=== PATIENT | male | born 2000 | race Caucasian/White ===

== ENCOUNTER 2019-12-05 11:05 | Emergency (ER) | payer BC ==
--- NOTE | 2019-12-05 12:30 | EDM.PDOC ---
ED HPI GENERAL MEDICAL PROBLEM - General Chief Complaint: Chest Pain Stated Complaint: HIGH BP Time Seen by Provider: 12/05/19 12:18 - History of Present Illness INITIAL COMMENTS - FREE TEXT/NARRATIVE: 19-year-old male presents the emergency room with a sensation of fluttering in his chest. Patient was sent here from the clinic and told his blood pressure was too high. The patient gives a history of at least once a day having an episode where he feels as fluttering in his chest and at times he develops a squeezing sensation in his chest with this. This is been going on for at least the last couple of weeks but seems to get much more frequent over the last 4 days or so. The patient denies any history of heart problems he recently quit smoking denies illicit drug use. Patient has a family history of a grandmother who had heart problems in her 60s. Left Chest Pain Score (Numeric/FACES): 1 - Related Data Allergies Allergy/AdvReac Type Severity Reaction Status Date / Time shellfish derived Allergy Airway Verified 12/12/15 19:24 Tightness Home Meds: Home Meds . [No Known Home Meds] 12/12/15 [History] Past Medical History HEENT History: Reports: None Cardiovascular History: Reports: None Respiratory History: Reports: Asthma Gastrointestinal History: Reports: None Genitourinary History: Reports: None Musculoskeletal History: Reports: Other (See Below) Other Musculoskeletal History: Knee Pain Neurological History: Reports: None Psychiatric History: Reports: Depression Endocrine/Metabolic History: Reports: None Hematologic History: Reports: None Immunologic History: Reports: None Oncologic (Cancer) History: Reports: None Dermatologic History: Reports: None - Infectious Disease History Infectious Disease History: Reports: None Social & Family History - Tobacco Use Smoking Status *Q: Former Smoker Used Tobacco, but Quit: Yes Month/Year Tobacco Last Used: 09/2019 - Caffeine Use Caffeine Use: Reports: Coffee, Energy Drinks, Soda - Recreational Drug Use Recreational Drug Use: No - Living Situation & Occupation Living situation: Reports: Single, with Family Occupation: Student ED ROS GENERAL - Review of Systems Review Of Systems: See Below Constitutional: Reports: No Symptoms HEENT: Reports: No Symptoms Respiratory: Reports: No Symptoms Cardiovascular: Reports: Palpitations. Denies: Chest Pain GI/Abdominal: Reports: No Symptoms Neurological: Reports: No Symptoms ED EXAM, GENERAL - Physical Exam Exam: See Below Exam Limited By: No Limitations General Appearance: Alert, No Apparent Distress Head: Atraumatic, Normocephalic Neck: Normal Inspection, Supple, Non-Tender, Full Range of Motion. No: Lymphadenopathy (L), Lymphadenopathy (R), Thyromegaly Respiratory/Chest: No Respiratory Distress, Lungs Clear, Normal Breath Sounds Cardiovascular: Regular Rate, Rhythm, No Edema, No Murmur GI/Abdominal: Normal Bowel Sounds, Soft, Non-Tender Extremities: Normal Inspection, No Pedal Edema Neurological: Alert, Oriented, Normal Cognition Course - Vital Signs Last Recorded V/S: Last Vital Signs Temp 36.2 C 12/05/19 11:11 Pulse 93 12/05/19 11:11 Resp 16 12/05/19 11:11 BP 144/90 H 12/05/19 11:11 Pulse Ox 100 12/05/19 11:11 - Orders/Labs/Meds Orders: Active Orders 24 hr Category Date Time Status EKG 12 Lead [EKG Documentation Completion] [RC] ROUTINE Care 12/05/19 11:41 Active Holter Monitor 48 Hours [RC] .PRN Care 12/05/19 15:09 Active Labs: Laboratory Tests 12/05/19 12/05/19 12/05/19 Range/Units 13:10 13:10 13:10 WBC 6.56 (4.23-9.07) K/mm3 RBC 4.98 (4.63-6.08) M/mm3 Hgb 14.9 (13.7-17.5) gm/dl Hct 41.9 (40.1-51.0) % MCV 84.1 (79.0-92.2) fl MCH 29.9 (25.7-32.2) pg MCHC 35.6 H (32.2-35.5) g/dl RDW Std Deviation 39.7 (35.1-43.9) fL Plt Count 228 (163-337) K/mm3 MPV 9.6 (9.4-12.3) fl Neut % (Auto) 63.2 (34.0-67.9) % Lymph % (Auto) 25.5 (21.8-53.1) % [place] % (Auto) 8.5 (5.3-12.2) % Eos % (Auto) 2.1 (0.8-7.0) Baso % (Auto) 0.5 (0.1-1.2) % Neut # (Auto) 4.15 (1.78-5.38) K/mm3 Lymph # (Auto) 1.67 (1.32-3.57) K/mm3 [place] # (Auto) 0.56 (0.30-0.82) K/mm3 Eos # (Auto) 0.14 (0.04-0.54) K/mm3 Baso # (Auto) 0.03 (0.01-0.08) K/mm3 Sodium 141 (136-145) mEq/L Potassium 4.0 (3.5-5.1) mEq/L Chloride 104 (98-107) mEq/L Carbon Dioxide 29 (21-32) mEq/L Anion Gap 12.0 (5-15) BUN 15 (7-18) mg/dL Creatinine 0.8 (0.7-1.3) mg/dL Est Cr Clr Drug Dosing 122.76 mL/min Estimated GFR (MDRD) > 60 (>60) mL/min BUN/Creatinine Ratio 18.8 H (14-18) Glucose 82 (74-106) mg/dL Calcium 9.8 (8.5-10.1) mg/dL Magnesium 1.9 (1.8-2.4) mg/dl Total Bilirubin 1.7 H (0.2-1.0) mg/dL AST 18 (15-37) U/L ALT 17 (16-63) U/L Alkaline Phosphatase 62 (46-116) U/L Troponin I 0.000 (0.00-0.056) ng/mL Total Protein 7.3 (6.4-8.2) g/dl Albumin 4.3 (3.4-5.0) g/dl Globulin 3.0 gm/dL Albumin/Globulin Ratio 1.4 (1-2) TSH 3rd Generation 1.369 (0.358-3.74) uIU/mL - Re-Assessments/Exams Free Text/Narrative Re-Assessment/Exam: 12/05/19 15:10 Laboratory assessment is unrevealing he has some mild elevation in his bilirubin. We will discharge the patient with a Holter monitor. Departure - Departure Time of Disposition: 15:10 Disposition: Refer to Observation Clinical Impression: Palpitations Referrals: PCP,None [Primary Care Provider] - Forms: ED Department Discharge Additional Instructions: Return to the emergency room with any questions problems or worsening symptoms. Establish with a regular physician at the hospital clinic call to schedule an appointment several days after you return the Holter monitor. [phone]. Follow the directions for the Holter monitor Sepsis Event Note - Evaluation Sepsis Screening Result: No Definite Risk - Focused Exam Vital Signs: Vital Signs Temp Pulse Resp BP Pulse Ox 12/05/19 11:11 36.2 C 93 16 144/90 H 100 Date Exam was Performed: 12/05/19 Time Exam was Performed: 15:12 - My Orders Last 24 Hours: My Active Orders 12/05/19 11:41 EKG 12 Lead [EKG Documentation Completion] [RC] ROUTINE 12/05/19 15:09 Holter Monitor 48 Hours [RC] .PRN - Assessment/Plan Last 24 Hours: My Active Orders 12/05/19 11:41 EKG 12 Lead [EKG Documentation Completion] [RC] ROUTINE 12/05/19 15:09 Holter Monitor 48 Hours [RC] .PRN
[2019-12-05 15:30] VITALS: BP 149/66; PULSE 66
== END 2019-12-05 15:36 | disposition other institution (70) ==
LOC: JD.ED 11:05
DX: R00.2 Palpitations (principal); Z91.013 Allergy to seafood; Z87.891 Personal history of nicotine dependence
CPT/HCPCS: 36415; 80053; 83735; 84443; 84484; 85025; 93005; 93010; 93225; 93226; 99284; 99285-25

== ENCOUNTER 2021-04-04 14:26 | Emergency (ER) | payer BC, OTHER ==
--- NOTE | 2021-04-04 14:42 | EDM.PDOC ---
ED HPI GENERAL MEDICAL PROBLEM - General Chief Complaint: Head Injury Stated Complaint: FOREHEAD LAC AND NECK INJURY Time Seen by Provider: 04/04/21 14:41 - History of Present Illness INITIAL COMMENTS - FREE TEXT/NARRATIVE: 20-year-old male brought in to the emergency room with a head injury and neck injury. The patient was struck by a 4 inch thick piece of flat iron that was suspended by a gonzalez they lifted it when it popped loose it hit him in the forehead. Patient does not remember this happening he remembers waking up. He has a laceration on his forehead. Occupational medicine did call me and informed me that the patient would be arriving. Patient has not had any nausea or vomiting he knows where he is at right now and is acting pretty normal. He is got a mild headache. He believes his last tetanus shot was in 2015. Patient also complains of neck discomfort the nurse here that triaged him put him in a c- collar. The patient denies any other injury associated with this most unfortunate event. Posterior Neck Pain Score (Numeric/FACES): 6 - Related Data Allergies Allergy/AdvReac Type Severity Reaction Status Date / Time shellfish derived Allergy Severe Airway Verified 04/04/21 14:49 Tightness bacitracin Allergy Severe Other Uncoded 04/04/21 14:51 Home Meds: Home Meds Albuterol Sulfate [Albuterol Sulfate Hfa] 1 puff INH ASDIRECTED 04/04/21 [History] Past Medical History HEENT History: Reports: None Cardiovascular History: Reports: None Respiratory History: Reports: Asthma Gastrointestinal History: Reports: None Genitourinary History: Reports: None Musculoskeletal History: Reports: Other (See Below) Other Musculoskeletal History: Knee Pain Neurological History: Reports: None Psychiatric History: Reports: Depression Endocrine/Metabolic History: Reports: None Hematologic History: Reports: None Immunologic History: Reports: None Oncologic (Cancer) History: Reports: None Dermatologic History: Reports: None - Infectious Disease History Infectious Disease History: Reports: None Social & Family History - Caffeine Use Caffeine Use: Reports: Coffee, Energy Drinks, Soda - Living Situation & Occupation Living situation: Reports: Single, with Family Occupation: Student ED ROS GENERAL - Review of Systems Review Of Systems: See Below Constitutional: Reports: No Symptoms HEENT: Reports: No Symptoms Respiratory: Reports: No Symptoms Cardiovascular: Reports: No Symptoms GI/Abdominal: Reports: No Symptoms : Reports: No Symptoms Musculoskeletal: Reports: Neck Pain, Muscle Pain Neurological: Reports: Headache, Other (Patient cannot recall what happened) Psychiatric: Reports: No Symptoms Hematologic/Lymphatic: Reports: No Symptoms Immunologic: Reports: No Symptoms ED EXAM, GENERAL - Physical Exam Exam: See Below Exam Limited By: No Limitations General Appearance: Alert, No Apparent Distress Eye Exam: Bilateral Eye: EOMI, Normal Inspection, PERRL Ears: Normal External Exam, Normal Canal, Hearing Grossly Normal, Normal TMs Nose: Normal Inspection, Normal Mucosa, No Blood Throat/Mouth: Normal Inspection, Normal Lips, Normal Teeth, Normal Gums, Normal Oropharynx, Normal Voice, No Airway Compromise Head: Other (Swelling over the forehead 3 to 4 cm laceration) Neck: Other (C-collar in place) Respiratory/Chest: No Respiratory Distress, Lungs Clear, Normal Breath Sounds Cardiovascular: Normal Peripheral Pulses, Regular Rate, Rhythm, No Edema GI/Abdominal: Normal Bowel Sounds, Soft, Non-Tender Back Exam: Normal Inspection. No: CVA Tenderness (L), CVA Tenderness (R), Vertebral Tenderness Extremities: Normal Inspection, No Pedal Edema Neurological: Alert, Oriented, CN II-XII Intact, Normal Cognition, No Motor/Sensory Deficits ED GENERAL MEDICAL PROCEDURES - Laceration/Wound Repair Left Forehead Lac/wound length in cm: 3.5 Appearance: Subcutaneous, Clean Anesthetic Type: Local Local Anesthesia - Lidocaine (Xylocaine): 1% Plain Local Anesthetic Volume: 2cc Skin Prep: Saline Exploration/Debridement/Repair: Wound Explored, In a Bloodless Field, Explored to Base Closed with: Sutures Suture Size: 4-0 # of Sutures: 10 Suture Type: Nylon Tetanus Status Addressed: Yes (He is up-to-date) Complications: No Progress/Comments: Satisfactory wound closure with 10 simple sutures of 4-0 nylon Course - Vital Signs Last Recorded V/S: Last Vital Signs Temp 36.9 C 04/04/21 14:48 Pulse 81 04/04/21 14:48 Resp 20 04/04/21 14:48 BP 133/84 04/04/21 14:48 Pulse Ox 99 04/04/21 14:48 - Orders/Labs/Meds Meds: Medications Discontinued Medications Generic Name Dose Route Start Last Admin Trade Name Freq PRN Reason Stop Dose Admin Lidocaine HCl 10 ml 04/04/21 15:07 04/04/21 15:13 Lidocaine 1% 10 Ml Mdv INJECT 04/04/21 15:08 10 ml ONETIME ONE Administration - Re-Assessments/Exams Free Text/Narrative Re-Assessment/Exam: 04/04/21 16:56 Patient has done well with his ER stay. Head and neck CT were negative for acute fracture dislocation soft tissue swelling seen around the area of the laceration. No intracranial abnormalities appreciated on CT. Patient tolerated primary repair of the laceration on his forehead without difficulty. He is thought to be up-to-date on his tetanus so this did not need to be updated. Because he works in a dirty environment I am and to keep him off work until Wednesday. Departure - Departure Time of Disposition: 16:58 Disposition: Home, Self-Care 01 Clinical Impression: Head injury with loss of consciousness, Scalp laceration - Discharge Information Referrals: PCP,None [Primary Care Provider] - Forms: ED Department Discharge, ED Return to Work/School Form Additional Instructions: Return to the emergency room with any questions problems or concerning symptoms. Tonight be awoken every hour and 1/2 to 2 hours to ensure normal behavior. Get as much sleep as you feel you need. Avoid excessive screen time either TV computer or cell phone. If you need to rest from mental activities allow yourself time to do so. As we discussed keep the wound absolutely clean and dry for the next 24 to 48 hours after this you may let water gently roll over the area and then gently dab dry no scrubbing. On Wednesday you are allowed to return to work. However, keep the area absolutely clean and dry at work. Suture removal in 11 or 12 days sooner if irritation develops. Sepsis Event Note (ED) - Focused Exam Vital Signs: Vital Signs Temp Pulse Resp BP Pulse Ox 04/04/21 14:48 36.9 C 81 20 133/84 99
[2021-04-04 14:49] VITALS: BP 133/84; PULSE 81
[2021-04-04] MEDS ORDERED: Lidocaine 1% 10 ML MDV INJECT ONE (15:07)
--- NOTE | 2021-04-04 15:23 | CT ---
Head CT Technique: Multiple axial sections through the brain were obtained. Intravenous contrast was not utilized. Reconstructed coronal and sagittal images were also obtained. Comparison: No prior intracranial imaging is available. Findings: Ventricles along with basal cisterns and sulci over the convexities are within normal limits for the patient's age. No abnormal parenchymal densities are seen. No evidence of intracranial hemorrhage is seen. No midline shift or mass-effect is seen. Bone window settings were reviewed which show the visualized mastoid sinuses to appear clear. Minimal mucosal thickening is seen within the ethmoid sinuses. No acute calvarial abnormality is appreciated. Soft tissue injury is noted within the left frontal scalp. Impression: 1. Soft tissue injury within the left frontal scalp. 2. No other acute abnormality is seen on noncontrast head CT exam. 3. Minimal mucosal thickening within the ethmoid sinuses which is likely chronic. Diagnostic code #2
--- NOTE | 2021-04-04 15:26 | CT ---
CT cervical spine Technique: Multiple axial sections were obtained from above the C1 inferiorly to the mid T2 level. Reconstructed coronal and sagittal images were obtained. Cervical spine shows some lateral tilt which could be due to position. Vertebral body heights and disc spaces are preserved. No acute fracture is seen. Visualized lung apices are clear. No abnormal subluxation is seen. No bony central or bony neural foraminal stenosis is seen. Impression: 1. Positional findings as noted above. 2. Nothing acute is seen on CT study of the cervical spine. Diagnostic code #2
== END 2021-04-04 17:17 | disposition home or self-care (01) ==
LOC: JD.ED 14:26
DX: S06.9X9A Unspecified intracranial injury with loss of consciousness of unspecified duration, initial encounter (principal); S01.01XA Laceration without foreign body of scalp, initial encounter; Z88.1 Allergy status to other antibiotic agents; Z91.013 Allergy to seafood; W22.8XXA Striking against or struck by other objects, initial encounter
CPT/HCPCS: 12013; 70450; 70450-26; 72125; 72125-26; 99283-25